=== PATIENT | male | born 1980 | race Caucasian/White ===

== ENCOUNTER 2017-01-28 16:55 | Emergency (ER) | payer SELFPAY ==
[~2017-01-28] VITALS: Ht 170.2 cm; Wt 85.0 kg
[2017-01-28 16:58] VITALS: Ht 170.2 cm; Wt 85.0 kg
[2017-01-28] MEDS ORDERED: ONDANSETRON 4 MG INJ IV STA (17:27)
[2017-01-28] MEDS ORDERED: morphine 4 MG/ML VIAL IV STA (17:27)
[2017-01-28 17:51] LABS: ADD SCAN DIFF NO
[2017-01-28 17:57] LABS: BASOPHILS % 0.3 % (0.0-2.0); EOSINOPHILS % 0.1 % (0.0-7.0); HEMATOCRIT 45.4 % (42.0-52.0); HEMOGLOBIN 15.4 g/dl (14.0-18.0); LYMPHOCYTES # 1.3 10^3/ul (0.8-2.9); LYMPHOCYTES % 8.9 % (15.0-51.0); MEAN CORPUSCULAR HEMOGLOBIN 30.1 pg (29.0-33.0); MEAN CORPUSCULAR HGB CONC 33.9 g/dl (32.0-37.0); MEAN CORPUSCULAR VOLUME 88.7 fl (82.0-101.0); MEAN PLATELET VOLUME 11.9 fl (7.4-10.4); MONOCYTE # 0.4 10^3/ul (0.3-0.9); MONOCYTES % 2.8 % (0.0-11.0); NEUTROPHIL # 12.4 10^3/ul (1.6-7.5); NEUTROPHILS % 87.5 % (39.0-77.0); PLATELET COUNT 237 10^3/UL (140-415); RED BLOOD COUNT 5.12 10^6/ul (4.70-6.10); RED CELL DISTRIBUTION WIDTH 12.2 % (11.5-14.5); WHITE BLOOD COUNT 14.1 10^3/ul (4.8-10.8)
[2017-01-28 18:03] LABS: ADD UMIC YES; URINE BILIRUBIN (Dip) NEGATIVE (NEGATIVE); URINE BLOOD (Dip) 2+ (NEGATIVE); URINE COLOR YELLOW (YELLOW); URINE GLUCOSE (Dip) NEGATIVE (NEGATIVE); URINE KETONES (Dip) NEGATIVE (NEGATIVE); URINE LEUKOCYTE ESTERASE (Dip) NEGATIVE (NEGATIVE); URINE NITRITE (Dip) NEGATIVE (NEGATIVE); URINE TOTAL PROTEIN (Dip) 1+ (NEGATIVE); URINE UROBILINOGEN (Dip) 0.2 E.U./dL (0.1-1.0)
[2017-01-28] MEDS ORDERED: DICLOFENAC SODIUM 37.5 MG/ML VIAL IV STA (18:05)
[2017-01-28 18:12] LABS: ALBUMIN 4.6 g/dl (3.3-4.9)
[2017-01-28 18:13] LABS: POTASSIUM 3.9 mmol/L (3.5-5.1)
[2017-01-28 18:15] LABS: ALBUMIN/GLOBULIN RATIO 1.31; BILIRUBIN,INDIRECT 0.2 mg/dl (0-1.1); BILIRUBIN,TOTAL 0.2 mg/dl (0.2-1.3); CREATININE 1.07 mg/dl (0.61-1.24); TOTAL PROTEIN 8.1 g/dl (6.1-8.1)
[2017-01-28 18:16] LABS: CALCIUM 9.1 mg/dl (8.4-10.2)
[2017-01-28 18:20] LABS: BACTERIA,URINE FEW; MUCUS,URINE MODERATE
--- NOTE | 2017-01-28 19:50 | RADRPT ---
PROCEDURE: CT abdomen and pelvis without contrast. Site of service: emergency room. CLINICAL INDICATION: Periumbilical abdominal pain, hematuria TECHNIQUE: CT scan of the abdomen and pelvis without contrast was performed on the CT scanner. Th e patient was scanned without intravenous contrast. Oral contrast was not administered. 3-D post p rocessing coronal and sagittal re-formations were obtained from the axial source images. Exam D L P [address] D V O L 14 mgy. This exam is limited due to lack of intravenous contrast. One or more of the following dose reduction techniques were used: Automated exposure control Adjustment of the mA and/or kV according to patient size. Use of iterative reconstruction technique. COMPARISON: None FINDINGS: CT abdomen: The lung bases are clear. The heart size is normal, without pericardial thickening or effusion. The liver is normal in size and density without focal mass or intrahepatic biliary dilatation. The spleen is normal in size and homogeneous in density. The stomach is partially collapsed, but is mick ssly unremarkable. The pancreas as visualized is normal. The gallbladder and biliary tree are unre markable and there is no evidence for biliary dilatation. The adrenal glands are symmetric and normal. There is a 3 x 3 x 3 mm mildly obstructing left ureterovesicular junction stone. No additional velia l, ureteral or bladder stones are seen. The aorta is of normal caliber. There is no retroperitoneal lymphadenopathy. The edwige hepatis yumiko on is clear. The bowel and mesentery, as visualized, are equally unremarkable. CT pelvis: The small bowel loops situated within the pelvis are unremarkable. The appendix is normal. The sig moid colon and rectum are all unremarkable. No mass, lymphadenopathy, or free fluid is seen. No ac lolita inflammation is seen. The pelvic organs are normal. The pelvic sidewalls and inguinal regions are clear. The surrounding osseous structures are normal. No osteolytic or osteoblastic lesion is detected. IMPRESSION: 3 mm, mildly obstructing left UVJ stone. This stone will likely pass on its own. No additional fin dings are present. RPTAT: QQ .Cecilia Villarreal MD, MD Date Time Electronically viewed and signed by .Cecilia Villarreal MD, on 01/28/2017 19:49 .F/
[2017-01-28] MEDS ORDERED: IBUP-1542 PO (20:00)
[2017-01-28] MEDS ORDERED: HYDR-906 PO (20:00)
[2017-01-28] MEDS ORDERED: ONDA8TAB14 PO (20:00)
--- NOTE | 2017-01-28 20:06 | ERD ---
ER Documentation Chief Complaint Date/Time DATE: 01/28/17 TIME: 20:03 Chief Complaint diffuse lower abdominal pain for past hour with 2 episodes of vomiting HPI This 36-year-old male [place] of lower abdominal pain starting the last hour the vomiting is nonbilious and bloody. He denies fevers, earache complaints alert specific right-sided abdominal pain. He wants to the suprapubic bilateral lower abdominal areas the source of pain. ROS All systems reviewed and are negative except as per history of present illness. Medications Home Meds Active Scripts Ondansetron (Ondansetron Odt) 8 Mg Tab.rapdis, 8 MG PO Q6H Y for NAUSEA AND/OR VOMITING, #8 TAB Prov:MIKE ALEXANDRE MD 01/28/17 Hydrocodone/Acetaminophen ([place] 5-325 Tablet) 1 Each Tablet, 1 TAB PO Q6H Y for PAIN, #12 TAB Prov:MIKE ALEXANDRE MD 01/28/17 Ibuprofen* (Motrin*) 600 Mg Tab, 600 MG PO Q6, #20 TAB Prov:MIKE ALEXANDRE MD 01/28/17 Allergies Allergies: Coded Allergies: No Known Allergy (Unverified , 01/28/17) PMhx/Soc Medical and Surgical Hx: pt denies Medical Hx, pt denies Surgical Hx History of Surgery: No Anesthesia Reaction: No Hx Neurological Disorder: No Hx Respiratory Disorders: No Hx Cardiac Disorders: No Hx Psychiatric Problems: No Hx Miscellaneous Medical Probl: No Hx Alcohol Use: No Hx Substance Use: No Hx Tobacco Use: No Physical Exam Vitals Vital Signs Date Time Temp Pulse Resp B/P Pulse Ox O2 Delivery O2 Flow Rate FiO2 01/28/17 16:58 98.6 60 18 170/92 98 Physical Exam Const: [] Alert, not ill-appearing. Uncomfortable due to pain. However Head: Atraumatic Eyes: Normal Conjunctiva ENT: Normal External Ears, Nose and Mouth. Neck: Full range of motion..~ No meningismus. Resp: Clear to auscultation bilaterally Cardio: Regular rate and rhythm, no murmurs Abd: Soft, mild tenderness in the suprapubic and lower abdomen without exquisite tenderness at McBurney's point and no Collins sign. No rebound appreciated., non distended. Normal bowel sounds Skin: No petechiae or rashes Back: No midline or flank tenderness Ext: No cyanosis, or edema Neur: Awake and alert Psych: Normal Mood and Affect Result Diagram: 01/28/170 01/28/17 1740 Results 24 hrs Laboratory Tests Test 01/28/17 17:20 01/28/17 17:40 Urine Color YELLOW Urine Clarity CLEAR Urine pH 7.5 Urine Specific [place] 1.015 Urine Ketones NEGATIVE Urine Nitrite NEGATIVE Urine Bilirubin NEGATIVE Urine Urobilinogen 0.2 E.U./dL Urine Leukocyte Esterase NEGATIVE Urine Microscopic RBC 10-25/HPF Urine Microscopic WBC 0-2/HPF Urine Bacteria FEW Urine Mucus MODERATE Urine Hemoglobin 2+ Urine Glucose NEGATIVE% Urine Total Protein 1+ White Blood Count 14.110^3/ul Red Blood Count 5.1210^6/ul Hemoglobin 15.4g/dl Hematocrit 45.4% Mean Corpuscular Volume 88.7fl Mean Corpuscular Hemoglobin 30.1pg Mean Corpuscular Hemoglobin Concent 33.9g/dl Red Cell Distribution Width 12.2% Platelet Count 47929^3/UL Mean Platelet Volume 11.9fl Neutrophils % 87.5% Lymphocytes % 8.9% Monocytes % 2.8% Eosinophils % 0.1% Basophils % 0.3% Nucleated Red Blood Cells % 0.0/100WBC Neutrophils # 12.410^3/ul Lymphocytes # 1.310^3/ul Monocytes # 0.410^3/ul Eosinophils # 0.010^3/ul Basophils # 0.010^3/ul Nucleated Red Blood Cells # 0.010^3/ul Sodium Level 143mmol/L Potassium Level 3.9mmol/L Chloride Level 102mmol/L Carbon Dioxide Level 29mmol/L Anion Gap 16 Blood Urea Nitrogen 16mg/dl Creatinine 1.07mg/dl Glucose Level 122mg/dl Calcium Level 9.1mg/dl Total Bilirubin 0.2mg/dl Direct Bilirubin 0.00mg/dl Indirect Bilirubin 0.2mg/dl Aspartate Amino Transf (AST/SGOT) 24IU/L Alanine Aminotransferase (ALT/SGPT) 33IU/L Alkaline Phosphatase 78IU/L Total Protein 8.1g/dl Albumin 4.6g/dl Globulin 3.50g/dl Albumin/Globulin Ratio 1.31 Lipase 52U/L Current Medications Medications (Trade) Dose Ordered Sig/Lili Route PRN Reason Start Time Stop Time Status Last Admin Dose Admin Morphine Sulfate (morphine) 4 mg ONCE STAT IV 01/28/17 17:27 01/28/17 17:28 DC 01/28/17 17:48 Ondansetron HCl (Zofran Inj) 4 mg ONCE STAT IV 01/28/17 17:27 01/28/17 17:28 DC 01/28/17 17:48 Diclofenac Sodium (Dyloject) 37.5 mg ONCE STAT IV 01/28/17 18:05 01/28/17 18:06 DC 01/28/17 18:12 Procedures/MDM Given the uncertain cause of pain IV was obtained. CBC shows a leukocytosis of 14. CMP is normal. Urine shows positive hemoglobin without leukocytes or nitrites. CT abdomen and pelvis without IV contrast shows a 3 mm stone at the left UV junction. Patient initially was given 4 MG of morphine IV, Zofran 4 modems IV, and had persistent pain. He essentially given Dilantin at 37.5 mg IV. Patient felt better and pain resolved after further observation treatment. Patient presents assigned symptoms of renal colic with improvement during his ED course. Patient be treated with a short course of [place] and ibuprofen and Zofran and instructions for clear fluids. Sentences do not suggest appendicitis. Leukocytes are slightly to stress response from pain. This no current abdominal pain upon discharge without evidence of infection community at , pyonephritis, obstruction, additional emergent causes of presenting complaints. The patient was stable with no new complaints during the ER course. Clinically, there is no current evidence to suggest meningitis, sepsis, acute abdomen, pneumonia, acute coronary syndrome, pulmonary embolism, or any other emergent condition appearing to require further evaluation or hospitalization. The patient should certainly return for any new or worsening symptoms per the aftercare instructions. They should otherwise follow-up with her primary care doctor for reevaluation this week. Patient was advised to follow-up with primary doctor this week and possibly urology evaluation. Departure Diagnosis: Primary Impression: Kidney stone Condition: Stable Patient Instructions: Kidney Stone W/ Colic Additional Instructions: MIKE NOYOLA MD January 28, 2017 20:06
== END 2017-01-28 20:17 | disposition home or self-care (01) ==
LOC: FTE 16:55
DX: N20.0 Calculus of kidney (principal); R11.10 Vomiting, unspecified
CPT/HCPCS: 36415; 74176; 80053; 81001; 83690; 85025; 96374; 96375; 99285; J2270; J2405; 81003